=== PATIENT | female | born 1930 | race Caucasian/White ===

== ENCOUNTER → 2017-12-26 | Outpatient (CLI) | payer OTHER ==
[~2017-12-26] MED LIST: AMIT75 PO; ATOR80TA41 PO; ATOR80TA45 PO; DICY10CA12 PO; ECASA81 PO; FIORINAL2 PO; FURO20 PO; FURO20TA PO; LISI-363 PO; LISI40TA PO; METO25 PO; MIRA3350 PO; MULT1TAB61 PO; OMEP20TA PO; OMEP20TA93 PO; THERM PO; VITA2000 PO; VITA500T35 PO; Z.0.OXYGENDME NC
== END ==
LOC: CPRE 07:54
PROVIDERS: ATTEND Orthopaedic Surgery Orthopaedic Surgery of the Spine
DX: Z01.818 Encounter for other preprocedural examination (principal)

== ENCOUNTER 2018-01-10 07:43 | Inpatient (IN) | payer OTHER, MEDICARE ==
[~2018-01-10] VITALS: Ht 157.5 cm; Wt 86.4 kg
[~2018-01-10 07:43] MED LIST changes: -AMIT75 PO; -ATOR80TA41 PO; -FURO20 PO; -LISI-363 PO; -METO25 PO; -OMEP20TA PO; -THERM PO; -Z.0.OXYGENDME NC
[2018-01-10] MEDS ORDERED: SODIUM CHLORID 0.9% 500 ML IV PRN (08:15)
[2018-01-10] MEDS ORDERED: CHLORHEXIDINE GLUCONATE 2 % 1 PACK (2 CLOTHS) TOPICAL PRN (08:15)
[2018-01-10] MEDS ORDERED: LACTATED RINGER'S 1000 ML IV PRN (08:15)
[2018-01-10] MEDS ORDERED: POVIDONE IODINE 5% (ANTISEPSIS KIT) 4 APPLICATIONS EACH NARE PRN (08:15)
[2018-01-10] MEDS ORDERED: METOPROLOL TARTRATE 25 MG TAB PO PRN (08:15)
[2018-01-10] MEDS ORDERED: ceFAZolin 2 GM PREMIX 50 ML IV SCH (08:30)
[2018-01-10] MEDS ORDERED: VANCOMYCIN 1000 MG/NS 250 ML (for <70 kg) IV SCH ×2 (08:30)
[2018-01-10] MEDS ORDERED: CHLORHEXIDINE GLUCONATE 4% SOLN 120 ML BTL TOPICAL SCH (08:30)
[2018-01-10] MEDS ORDERED: TRANEXAMIC ACID IV SCH (09:00)
[2018-01-10] MEDS ORDERED: SODIUM CHLORIDE 0.9% IV SCH (09:00)
[2018-01-10] MEDS ORDERED: EXPAREL PERI-ARTICULAR INJECTION (TOTAL VOL. 60 ML) P-ARTICULR SCH ×2 (09:00)
[2018-01-10] MEDS ORDERED: GENTAMICIN SULFATE 80 MG/2 ML VIAL ONE (09:57)
[2018-01-10] MEDS ORDERED: BUPIVACAINE/EPINEPHRINE 0.5% PF 30 ML VIAL ONE (09:58)
[2018-01-10] MEDS ORDERED: ACETAMINOPHEN 1000 MG/100 ML 100 ML IV ONE (10:29)
[2018-01-10] MEDS ORDERED: LIDOCAINE HCL 1% PF 5 ML SYRINGE OTHER ONE (12:00)
[2018-01-10] MEDS ORDERED: ceFAZolin INJ 1,000 MG VIAL IV ONE (12:00)
[2018-01-10] MEDS ORDERED: GLYCOPYRROLATE 1 MG/5 ML SYRINGE IV PUSH ONE (12:00)
[2018-01-10] MEDS ORDERED: PROPOFOL 200 MG/20 ML AMP IV ONE (12:00)
[2018-01-10] MEDS ORDERED: ONDANSETRON HCL 4 MG/2 ML VIAL IV ONE (12:00)
[2018-01-10] MEDS ORDERED: ROCURONIUM INJ 50 MG/5 ML SYRINGE IV PUSH ONE (12:00)
[2018-01-10] MEDS ORDERED: NEOSTIGMINE 5 MG/5 ML SYRINGE IV PUSH ONE (12:00)
[2018-01-10] MEDS ORDERED: ONDANSETRON HCL 4 MG/2 ML VIAL IVP PRN (13:00)
[2018-01-10] MEDS ORDERED: ASPIRIN 325 MG/CAFFEINE 40 MG/BUTALBITAL 50 MG CAP PO PRN (13:00)
[2018-01-10] MEDS ORDERED: TEMAZEPAM 15 MG CAP PO PRN (13:00)
[2018-01-10] MEDS ORDERED: DICYCLOMINE HCL 10 MG CAP PO PRN (13:00)
[2018-01-10] MEDS ORDERED: ALUMINUM/MAGNESIUM/SIMETH 30 ML CUP PO PRN (13:00)
[2018-01-10] MEDS ORDERED: Post-op Orders (for Pharmacy) XX ONE (13:00)
[2018-01-10] MEDS ORDERED: diphenhydrAMINE HCL 25 MG CAP PO PRN (13:00)
--- NOTE | 2018-01-10 13:05 | PD.OP ---
cc: Clay Chacon MD Operative Report Date of Surgery: Jan 10, 2018 Preoperative Diagnosis: Avascular necrosis right hip. History of previous right hip fracture status post internal fixation Postoperative Diagnosis: Same Procedure: Conversion of previous hip surgery to total hip replacement arthroplasty. Removal of multiple screws of the right hip Anesthesia: General Surgeon: Clay Chacon Software Engineer Sales(s): RED Alvarado Operation and Findings: EBL: 200 cc INDICATION: This patient is an 87-year-old female with a history of previous right hip surgery for a femoral neck fracture which healed. The patient had progressive pain in the region of her right hip and investigative studies shows evidence of avascular necrosis with collapse. She now presents for conversion to total hip replacement. NOTE: Virgie Delgado PA-C was present for the entire surgical procedure as my first line production supervisor. In my medical opinion her skill and care was necessary for the proper management of this patient. COMPONENTS: COMPANY: [employer] CUP: [place], 52 mm, 100 series STEM: Size 7, standard offset, Gobler, press-fit HEAD: 36, +5 12/14 taper PROCEDURE: This patient was brought to the operating room and anesthetized in the supine position and positioned on the routine table in the clean air suite. The patient was then rolled to a right side up lateral position and held with a Biomet hip positioner. The hip and leg was scrubbed with alcohol followed by Hibiclens followed by chloro prep and draped sterilely. A timeout was done and antibiotics were given within a routine time window. A 4 inch incision was made starting along the posterior one third of the greater trochanter. The iliotibial band was opened in line with the incision. The Charnley retractors were positioned. The posterior capsule and external rotators were taken down together in a sleeve. The sciatic nerve was palpated to be free of any obstruction or compression and posterior to the hip joint without any evidence of traction from the retractor. Multiple distal screws were found. There were dissected from the surrounding tissue. They were removed in a retrograde fashion without difficulty. The femoral neck was exposed. The head was removed. The neck was cut at the right location. The acetabulum was inspected. Deep retractors were positioned. The acetabulum was deepened down to the floor and started with a proper size reamer and reaming up to 51 mm. This was trialed with the same size trial. Overall fit was satisfactory. The proper cup was placed in approximately 40 of abduction and 30 of forward flexion. The final liner was positioned. Retractors were positioned allowing good visualization of the proximal femur. A box osteotome was utilized followed by progressive broaching for the Gobler stem. This was reamed and broached and eventually advanced to a size 7 stem. A trial reduction showed satisfactory stability. Offset was satisfactory. Leg length was reestablished. At 90 of flexion it was stable to 50 of internal rotation. The hip could not be subluxed anteriorly. The canal was irrigated copiously. Hemostasis was controlled. The final stem was inserted in approximately 20 of anteversion. The final head was impacted. The hip was reduced and stability, offset and leg length was as previously noted. The posterior capsule and external rotators were repaired through bone with interrupted #2 Tycron sutures. The piriformis muscle was repaired with the same. The iliotibial band with interrupted #1 Vicryl sutures. Subcutaneous tissue was approximated with 2-0 Vicryl suture and skin with running intradermal 3-0 Vicryl followed by Steri-Strips and benzoin. A sterile dressing was applied.. The sponge count needle counts and instrument counts were all correct. The patient was awakened and taken to the recovery room in satisfactory condition FINDINGS: There was evidence of avascular necrosis with complete loss of articular cartilage on the dorsal side. There was no complication that was appreciated. Clay Chacon MD Jan 10, 2018 13:05
[2018-01-10] MEDS ORDERED: HYDR-3583 PO (13:08)
[2018-01-10] MEDS ORDERED: ECASA81 PO (13:08)
--- NOTE | 2018-01-10 13:11 | HHI.FF ---
Face to Face Verification Diagnosis: (1) Avascular necrosis of bone of right hip Physical Therapy Gait training Hip: Total hip, Protocol: Right, Posterior hip precautions, Abduction pillow while in bed Right LE Weight Bearing: WB as tolerated Nursing RN: 3 days/week x 2 weeks Nursing: Other Dressing Changes: Do not change dressing I have seen patient Shivani Covarrubias on 01/10/18. My clinical findings support the need for the requested home health care services because: Ltd mobility - disease progression Limited ability to care for self I certify that my clinical findings support that this patient is homebound because: Post-op weakness Unsteady gait/balance Clay Chacon MD Jan 10, 2018 13:11
[2018-01-10] MEDS: LACTATED RINGER'S 1000 ML INJ 1,000 ML IV SCH (13:30)
[2018-01-10] MEDS ORDERED: ASPIRIN EC 81 MG TABEC PO ONE (13:32)
[2018-01-10] MEDS ORDERED: *morphine SULFATE 10 MG/ML PERIprocedure ONLY ONE (13:39)
[2018-01-10] MEDS ORDERED: MIDAZOLAM HCL 2 MG/2 ML VIAL ONE (13:43)
[2018-01-10] MEDS ORDERED: MORPHINE SULFATE 4 MG/ML INJ ONE (13:44)
[2018-01-10] MEDS ORDERED: *MEPERIDINE 25 MG INJ VIAL PERIprocedural Use ONLY ONE (13:45)
[2018-01-10] MEDS ORDERED: DO NOT ADM ANY ANTICOAGULANT DRUGS PRN (14:00)
[2018-01-10] MEDS ORDERED: *morphine SULFATE 4 MG/ML PERIprocedure ONLY ONE ×2 (14:26→14:48)
--- NOTE | 2018-01-10 14:42 | RADRPT ---
EXAM DATE: 01/10/2018 2:36 PM EDT AGE/SEX: 87 years / Female INDICATIONS: Post-op right hip. CLINICAL DATA: This is the patient's initial encounter. Patient reports that signs and symptoms have been present for 1 day and indicates a pain score of 10/10. MEDICAL/SURGICAL HISTORY: Hypertension. Congestive heart failure. Carcinoma, uterine. Thyroid ectomy. COMPARISON: No prior exams available for comparison. FINDINGS: Right hip arthroplasty components are in good position and in anatomic alignment. No significant acut e bony fracture. Soft tissues are grossly unremarkable. CONCLUSION: 1. Right hip arthroplasty in good position without acute fracture. Electronically signed by: Claudy Abrams MD 01/10/2018 2:40 PM EDT
[2018-01-10] MEDS ORDERED: *ENALAPRILAT 1.25 MG/ML VIAL PERIprocedural Use ONLY ONE ×2 (15:00→15:32)
[2018-01-10] MEDS ORDERED: HYDROmorphone HCL PF 2 MG/ML VIAL ONE (15:13)
[2018-01-10] MEDS ORDERED: *LABETALOL HCL 100 MG/20 ML VIAL PERIprocedural Use ONLY ONE (16:00)
[2018-01-10] MEDS ORDERED: hydrALAZINE HCL 20 MG/ML VIAL ONE (16:06)
[2018-01-10] MEDS ORDERED: hydrALAZINE HCL 20 MG/ML VIAL IV PUSH ONE (17:15)
[2018-01-10 17:30] VITALS: BP 163/72; PULSE 94; RESP 18; TEMP 98.3; O2SAT 93
[2018-01-10 20:05] VITALS: BP 158/68; PULSE 72; RESP 17; TEMP 98.3; O2SAT 93
[2018-01-10] MEDS: SENNOSIDES 8.6 MG TAB PO SCH (20:52)
[2018-01-10] MEDS: ATORVASTATIN 80 MG TAB PO SCH (20:52)
[2018-01-10] MEDS: ASPIRIN EC 81 MG TABEC PO SCH (20:53)
[2018-01-10] MEDS: PANTOPRAZOLE SOD 20 MG DELAYED RELEASE TAB PO SCH (20:53)
[2018-01-10] MEDS: MAGNESIUM HYDROXIDE SUSP 30 ML CUP PO SCH (20:57)
[2018-01-10] MEDS: MORPHINE SULFATE 8 MG/ML INJ IM PRN (23:51)
[2018-01-10 23:55] VITALS: BP 132/63; PULSE 76; RESP 17; TEMP 98.6; O2SAT 95
[2018-01-11 04:25] VITALS: BP 116/52; PULSE 81; RESP 17; TEMP 99.8; O2SAT 94
[2018-01-11] MEDS: LACTATED RINGER'S 1000 ML INJ 1,000 ML IV SCH ×2 (04:44→13:53)
[2018-01-11] MEDS: MORPHINE SULFATE 8 MG/ML INJ IM PRN ×2 (04:45→08:31)
[2018-01-11 05:23] LABS: HEMATOCRIT 33.4 % (35.0-46.0); HEMOGLOBIN 11.1 GM/DL (11.6-15.3)
[2018-01-11 08:00] VITALS: BP 123/56; PULSE 78; RESP 18; TEMP 99.6; O2SAT 93
[2018-01-11] MEDS: ASPIRIN EC 81 MG TABEC PO SCH ×2 (08:29→20:58)
[2018-01-11] MEDS: FUROSEMIDE 20 MG TAB PO SCH (08:29)
[2018-01-11] MEDS: LISINOPRIL 20 MG TAB PO SCH (08:30)
[2018-01-11] MEDS: ACETAMINOPHEN/HYDROcodone 325 MG/10 MG TAB PO PRN ×4 (08:32→22:56)
[2018-01-11] MEDS: MAGNESIUM HYDROXIDE SUSP 30 ML CUP PO SCH ×2 (08:41→20:58)
[2018-01-11 12:00] VITALS: BP 92/49; PULSE 68; RESP 18; TEMP 97.8; O2SAT 93
--- NOTE | 2018-01-11 13:22 | PD.ORT.PN ---
Subjective Subjective Remarks She states she has 'alot of hip pain'. No radiating leg pain. No CP or SOB. Concerned about going home. Believes she needs to stay 3 days because that is ' what her did when he had his hip done'. Objective Vitals Vital Signs Date Time Temp Pulse Resp B/P (MAP) Pulse Ox O2 Delivery O2 Flow Rate FiO2 01/11/18 08:00 99.6 78 18 123/56 (78) 93 01/11/18 04:25 99.8 81 17 116/52 (73) 94 01/10/18 23:55 98.6 76 17 132/63 (86) 95 01/10/18 20:05 98.3 72 17 158/68 (98) 93 01/10/18 17:30 98.3 94 18 163/72 (102) 93 01/10/18 16:45 80 12 155/69 (97) 96 Nasal Cannula 3 01/10/18 16:30 74 12 149/64 (92) 98 Nasal Cannula 3 01/10/18 16:15 63 12 159/72 (101) 98 Nasal Cannula 3 01/10/18 16:00 97.2 63 12 187/77 (113) 99 Nasal Cannula 3 01/10/18 15:45 62 12 187/77 (113) 100 Nasal Cannula 3 01/10/18 15:30 60 12 211/84 (126) 100 Nasal Cannula 3 01/10/18 15:15 60 17 195/83 (120) 100 Nasal Cannula 3 01/10/18 15:00 57 13 189/80 (116) 100 Nasal Cannula 4 01/10/18 14:30 59 12 137/60 (85) 100 Nasal Cannula 4 01/10/18 14:15 59 12 169/70 (103) 100 Nasal Cannula 4 01/10/18 14:00 58 12 170/69 (102) 100 Nasal Cannula 4 01/10/18 13:45 58 18 177/77 (110) 100 Nasal Cannula 4 01/10/18 13:27 97.4 63 19 123/58 (79) 96 Nasal Cannula 4 I/O 01/10/18 01/10/18 01/10/18 01/11/18 01/11/18 01/11/18 07:00 15:00 23:00 07:00 15:00 23:00 Intake Total 350 ml 360 ml Balance 350 ml 360 ml Intake Oral 300 ml 360 ml IV Total 50 ml # Voids 2 # Bowel Movements 0 Result Diagram: 01/11/18 0427 Objective Remarks Sitting on commode NAD VSS With family member RLE Hip dressing c/d/i, mild SS drainage, mild swelling, no erythema +motor at distal, +sens, +nvi Neg homans Assessment & Plan Ortho Post Op Day #: 1 Problem List: Assessment and Plan pod#1 s/p Conversion hip screws to posterior SINGH, right. Pain only moderately controlled. Ortho stable PO pain meds as needed. Discouraged continued use or morphine. PT - WBAT RLE. Posterior hip precautions. Hold dressing changes unless saturated. ASA 81mg bid. Ice hip bid. Consider d/c to SNF as patient is concerned about beds, chairs, distance to bathroom, etc. Virgie Delgado Jan 11, 2018 13:22
[2018-01-11 16:00] VITALS: BP 121/51; PULSE 70; RESP 18; TEMP 97.6; O2SAT 94
[2018-01-11 20:30] VITALS: BP 103/49; PULSE 73; RESP 17; TEMP 98.9; O2SAT 92
[2018-01-11] MEDS: SENNOSIDES 8.6 MG TAB PO SCH (20:57)
[2018-01-11] MEDS: PANTOPRAZOLE SOD 20 MG DELAYED RELEASE TAB PO SCH (20:58)
[2018-01-11] MEDS: ATORVASTATIN 80 MG TAB PO SCH (20:58)
[2018-01-12 00:30] VITALS: BP 100/49; PULSE 77; RESP 18; TEMP 99.6; O2SAT 93
[2018-01-12] MEDS: LACTATED RINGER'S 1000 ML INJ 1,000 ML IV SCH ×2 (02:23→08:17)
[2018-01-12 04:30] VITALS: BP_SYST 104; BP_SYST 123; BP_DIAS 60; BP_DIAS 77; PULSE 73; PULSE 82; RESP 18; RESP 20; TEMP 98; TEMP 98.3; O2SAT 92; O2SAT 95
[2018-01-12 08:00] VITALS: BP 123/60; PULSE 82; RESP 19; TEMP 97.2; O2SAT 92
[2018-01-12] MEDS: ASPIRIN EC 81 MG TABEC PO SCH ×2 (08:09→21:02)
[2018-01-12] MEDS: FUROSEMIDE 20 MG TAB PO SCH (08:09)
[2018-01-12] MEDS: ACETAMINOPHEN/HYDROcodone 325 MG/10 MG TAB PO PRN (08:10)
[2018-01-12] MEDS: LISINOPRIL 20 MG TAB PO SCH (08:11)
[2018-01-12] MEDS: MAGNESIUM HYDROXIDE SUSP 30 ML CUP PO SCH ×2 (08:14→21:00)
[2018-01-12 11:08] VITALS: BP 114/56; PULSE 67; RESP 18; TEMP 97.9; O2SAT 94
--- NOTE | 2018-01-12 14:05 | PD.ORT.PN ---
Subjective Subjective Remarks Doing well. Appears comfortable. No complaints Objective Vitals Vital Signs Date Time Temp Pulse Resp B/P (MAP) Pulse Ox O2 Delivery O2 Flow Rate FiO2 01/12/18 11:26 94 Nasal Cannula 1.00 01/12/18 11:08 97.9 67 18 114/56 (75) 94 01/12/18 08:00 97.2 82 19 123/60 (81) 92 01/12/18 04:30 98.3 73 18 104/60 (75) 92 01/12/18 00:30 99.6 77 18 100/49 (66) 93 01/11/18 20:30 98.9 73 17 103/49 (67) 92 01/11/18 16:00 97.6 70 18 121/51 (74) 94 I/O 01/11/18 01/11/18 01/11/18 01/12/18 01/12/18 01/12/18 07:00 15:00 23:00 07:00 15:00 23:00 Intake Total 360 ml 360 ml Balance 360 ml 360 ml Intake Oral 360 ml 360 ml # Voids 2 3 1 # Bowel Movements 0 0 1 Result Diagram: 01/11/18 0427 Objective Remarks Lying in bed. Dressing dry. No calf tenderness. Neuro exam is normal Assessment & Plan Assessment and Plan AVN right hip, status post ORIF. SURGERY: Conversion hip screws to posterior SINGH, right: POD #2 PLAN: Pain controlled. Ortho stable PO pain meds as needed. Discouraged continued use or morphine. PT - WBAT RLE. Posterior hip precautions. Hold dressing changes unless saturated. ASA 81mg bid. Ice hip bid. Discharge to SNF on Tuesday. Clay Chacon MD Jan 12, 2018 14:05
[2018-01-12 15:44] VITALS: BP 112/63; PULSE 79; RESP 18; TEMP 97.8; O2SAT 95
[2018-01-12 19:30] VITALS: BP 109/59; PULSE 79; RESP 18; TEMP 98.9; O2SAT 100
[2018-01-12] MEDS: SENNOSIDES 8.6 MG TAB PO SCH (21:00)
[2018-01-12] MEDS ORDERED: POLYETHYLENE GLYCOL 17 GM PKG PO SCH (21:00)
[2018-01-12] MEDS: ATORVASTATIN 80 MG TAB PO SCH (21:02)
[2018-01-12] MEDS: PANTOPRAZOLE SOD 20 MG DELAYED RELEASE TAB PO SCH (21:02)
[2018-01-13] VITALS: BP 118/57; PULSE 69; RESP 18; TEMP 99.2; O2SAT 95
[2018-01-13] MEDS: LACTATED RINGER'S 1000 ML INJ 1,000 ML IV SCH ×2 (03:23→07:04)
[2018-01-13 04:00] VITALS: BP 138/65; PULSE 76; RESP 18; TEMP 98.4; O2SAT 94
[2018-01-13] MEDS: MAGNESIUM HYDROXIDE SUSP 30 ML CUP PO SCH (07:05)
[2018-01-13] MEDS ORDERED: WALKER WHEELS/F1 MIS (08:11)
--- NOTE | 2018-01-13 08:12 | HHI.DCPOC ---
Discharge Care Plan Diagnosis: (1) Avascular necrosis of bone of right hip Your Health Problems Are: Difficulty with ADL Incision/Drains Swelling Goals to Promote Your Health * To prevent worsening of your condition and complications * To maintain your health at the optimal level Directions to Meet Your Goals Take your medications as prescribed Follow your dietary instruction Follow activity as directed Keep your appointments as scheduled Take your immunizations and boosters as scheduled If your symptoms worsen call your PCP, if no PCP go to Urgent Care Center or Emergency Room Smoking is Dangerous to Your Health. Avoid second hand smoke Call the 24-hour hour crisis hotline for domestic abuse at Virgie Delgado Jan 13, 2018 08:12
--- NOTE | 2018-01-13 08:13 | HHI.DS ---
Discharge Summary Admission Date Jan 10, 2018 at 07:43 Discharge Date: Jan 13, 2018 Admitting Diagnosis see below Diagnosis: (1) Avascular necrosis of bone of right hip Diagnosis: Principal ICD Codes: M87.051 - Idiopathic aseptic necrosis of right femur Procedures Conversion to right total hip arthroplasty, posterior approach Brief History This is a 87 year old female patient with a history of fall and hip fracture April 2017. She was treated with percutaneous screw fixation. Over the course of 4-6 months her pain began to increase and xrays showed the development of avascular necrosis of the hip. Surgical treatment was recommended in the form of conversion to total hip arthroplasty. She agreed and now presents for the above. CBC/BMP: 01/11/18 0427 Significant Findings Laboratory Tests Test 01/11/18 04:27 Hemoglobin 11.1 GM/DL (11.6-15.3) Hematocrit 33.4 % (35.0-46.0) PE at Discharge Lying in bed. Dressing dry. No calf tenderness. Neuro exam is normal Hospital Course Surgical treatment was performed on the day of admission without complication. She recovered well in PACU and was transferred to the orthopaedic floor. Pain was controlled with IV and oral medications. She was compliant with physical therapy, all precautions, and her abduction pillow. She was concerned about discharge home. After 3 days she was found to be stable and discharged to a [facility] facility. She was educated to continue therapy, to ice the operative site 1-2 times daily and to pursue a high fiber diet for 5-7 days. She was given prescriptions of Suring 10mg and ASA 81mg bid. Pt Condition on Discharge: Stable Discharge Disposition: Discharge to SNF Discharge Instructions Diet Instructions: As Tolerated, No Restrictions, High Fiber Diet Additional Diet Instructions: High fiber diet for 3-5 days postop Activities You Can Perform: Weight Bearing as Mack Activities to Avoid: Strenuous Activity Additional Activity Instruc.: Posterior sandeep precautions New Medications: Walker with Front Wheels (Walker with Front Wheels) 1 Mis Mis EA .XX DIRECTED, #1 0 Refills Aspirin (Aspirin DR) 81 Mg Tabdr 81 MG PO BID for Prevent Blood Clot, #60 TAB Hydrocodone/Acetaminophen (Hydrocodone-Acetamin 10-325 mg) 10 Mg-325 Mg Tablet 1 TAB PO Q4H PRN for Pain, #42 TAB Continued Medications: Aspirin (Aspirin DR) 81 Mg Tabdr 81 MG PO DAILY, TAB 0 Refills Atorvastatin (Atorvastatin) 80 Mg Tab 80 MG PO HS for Cholesterol Management, #30 TAB 0 Refills Ylrmtvvnfy-Vyalzyn-Ldrcdwuy (Fiorinal) 50-325-40 Mg Cap 1 CAP PO Q4H PRN for HEADACHE, CAP 0 Refills Do not exceed 6 capsules/day. Cholecalciferol (Vitamin D3) 2,000 Unit Cap 2000 UNITS PO DAILY for Nutritional Supplement, #1 BOTTLE 0 Refills Cyanocobalamin (Vitamin B12) 500 Mcg Tab 1000 MCG PO DAILY, #1 BOTTLE Dicyclomine (Dicyclomine) 10 Mg Cap 10 MG PO TID PRN for ABDOMINAL CRAMPING, CAP 0 Refills Furosemide (Furosemide) 20 Mg Tab 20 MG PO DAILY, #30 TAB 0 Refills Lisinopril (Lisinopril) 40 Mg Tab 40 MG PO DAILY for Blood Pressure Management, #30 TAB 0 Refills Multivit-Min/Iron/Folic/Lutein (Centrum Silver Women Tablet) 8 Mg Iron-400 Mcg- 300 Mcg Tablet 1 TAB PO DAILY Omeprazole (Omeprazole) 20 Mg Tab 20 MG PO HS, #30 TAB 0 Refills Polyethylene Glycol 3350 Powder (Miralax Powder) 17 Gm Powd 17 GM PO DAILY for Constipation, #1 CAN 0 Refills Mix and dissolve one measuring cap-ful (17 grams) in water or juice. Virgie Delgado Jan 13, 2018 08:13
[2018-01-13] MEDS ORDERED: COMMODE 3-IN-11 MIS (08:14)
--- NOTE | 2018-01-13 08:15 | PD.ORT.PN ---
Subjective Subjective Remarks Doing well. Appears comfortable. No complaints Objective Vitals Vital Signs Date Time Temp Pulse Resp B/P (MAP) Pulse Ox O2 Delivery O2 Flow Rate FiO2 01/13/18 04:00 98.4 76 18 138/65 (89) 94 01/13/18 00:00 99.2 69 18 118/57 (77) 95 01/12/18 19:30 98.9 79 18 109/59 (76) 100 01/12/18 15:44 97.8 79 18 112/63 (79) 95 01/12/18 15:44 95 Room Air 01/12/18 14:23 Room Air 01/12/18 11:26 94 Nasal Cannula 1.00 01/12/18 11:08 97.9 67 18 114/56 (75) 94 I/O 01/12/18 01/12/18 01/12/18 01/13/18 01/13/18 01/13/18 07:00 15:00 23:00 07:00 15:00 23:00 Intake Total 360 ml 420 ml Balance 360 ml 420 ml Intake Oral 360 ml 420 ml # Voids 1 4 4 # Bowel Movements 0 1 2 1 Result Diagram: 01/11/18 0427 Procedures Conversion to right total hip arthroplasty, posterior approach Objective Remarks Lying in bed. Dressing dry. No calf tenderness. Neuro exam is normal Assessment & Plan Problem List: (1) Avascular necrosis of bone of right hip ICD Codes: M87.051 - Idiopathic aseptic necrosis of right femur Assessment and Plan AVN right hip, status post ORIF. SURGERY: Conversion hip screws to posterior SINGH, right: POD #3 PLAN: Pain controlled. Ortho stable PO pain meds as needed. Discouraged continued use or morphine. PT - WBAT RLE. Posterior hip precautions. Hold dressing changes unless saturated. ASA 81mg bid. Ice hip bid. Discharge to SNF today Clay Chacon MD Jan 13, 2018 08:15
[2018-01-13] MEDS: ASPIRIN EC 81 MG TABEC PO SCH (08:33)
[2018-01-13] MEDS: LISINOPRIL 20 MG TAB PO SCH (08:33)
[2018-01-13] MEDS: FUROSEMIDE 20 MG TAB PO SCH (08:35)
[2018-01-13 08:40] VITALS: BP 132/60; PULSE 73; RESP 18; TEMP 98.4; O2SAT 93
[2018-01-13 12:00] VITALS: BP 140/65; PULSE 65; RESP 18; TEMP 98.1; O2SAT 92
== END 2018-01-13 18:47 | DRG 470 ==
LOC: HSDI 07:43 → N06A 17:09
PROVIDERS: ADMIT Orthopaedic Surgery Orthopaedic Surgery of the Spine; ATTEND Orthopaedic Surgery Orthopaedic Surgery of the Spine
PROC: 0QP604Z Removal of Internal Fixation Device from Right Upper Femur, Open Approach (ICD-10-PCS; 2018-01-10)
PROC: 0SR902A Replacement of Right Hip Joint with Metal on Polyethylene Synthetic Substitute, Uncemented, Open Approach (ICD-10-PCS; principal; 2018-01-10 10:47)
DX: M87.851 Other osteonecrosis, right femur (principal); T84.89XA Other specified complication of internal orthopedic prosthetic devices, implants and grafts, initial encounter; I12.9 Hypertensive chronic kidney disease with stage 1 through stage 4 chronic kidney disease, or unspecified chronic kidney disease; N18.3 Chronic kidney disease, stage 3 (moderate); E78.5 Hyperlipidemia, unspecified; I25.10 Atherosclerotic heart disease of native coronary artery without angina pectoris; R73.03 Prediabetes; K21.9 Gastro-esophageal reflux disease without esophagitis; E66.9 Obesity, unspecified; Z68.34 Body mass index [BMI] 34.0-34.9, adult
CPT/HCPCS: 73502; 85014; 85018; 86850; 86900; 86901; 86920; 94150; C1776; J0131; J0360; J0690; J1170; J1580; J2175; J2250; J2270; J2405; J2710; J3010; J3370; J7050; J7120